=== PATIENT | male | born 1960 | race Caucasian/White ===

== ENCOUNTER 2020-03-22 05:48 | Day surgery (SDC) | payer MEDICAID ==
[~2020-03-22] VITALS: Ht 172.7 cm; Wt 62.7 kg
[~2020-03-22 05:48] MED LIST: ALBU8HFA IH; AMLO-257 PO; ASPI-1111 PO; ASPI-728 PO; ATOR20TA86 PO; ATOR40TA28 PO; CILO100T PO; CLOP75TA14 PO; ISOS30TA6 PO; LISI-662 PO; NITR0.4T52 SL; PANT-31 PO; PROP10TA73 PO; SODIUM CHLORIDE 0.9% 1,000 ML ONE
[2020-03-22] MEDS ORDERED: SODIUM CHLORIDE 0.9% 1,000 ML IV ONE ×2 (06:00→07:30)
[2020-03-22] MEDS ORDERED: SODIUM POLYSTYRENE SULFONATE 15 GM/60 ML SUSPENSION BOTTLE PO ONE (07:30)
[2020-03-22] MEDS ORDERED: FUROSEMIDE 20 MG/2 ML VIAL IVP ONE (07:30)
[2020-03-22] MEDS ORDERED: FUROSEMIDE 40 MG/4 ML VIAL ONE (07:37)
[2020-03-22] MEDS ORDERED: DiphenhydrAMINE HCL 50 MG CAPSULE PO ONE (09:45)
[2020-03-22] MEDS ORDERED: DIAZEPAM 10 MG TABLET PO ONE (09:45)
[2020-03-22 12:00] LABS: CALCIUM, TOTAL 8.8 mg/dL (8.8-10.5); CREATININE 1.58 mg/dL (0.60-1.30)
[2020-03-22] MEDS ORDERED: ACETYLCYSTEINE 20% 200 MG/ML 4 ML ORAL SOLUTION PO ONE (12:00)
[2020-03-22] MEDS ORDERED: LIDOCAINE/PF 1% 30 ML VIAL ONE (12:30)
[2020-03-22] MEDS ORDERED: HEPARIN SODIUM,PORCINE 1,000 UNITS/ML 10 ML VIAL ONE (12:30)
[2020-03-22] MEDS ORDERED: HEPARIN SODIUM 1000 UNITS/NS 1,000 ML ONE (12:31)
[2020-03-22] MEDS ORDERED: IODIXANOL 320 MG/ML 150 ML VIAL ONE (12:33)
[2020-03-22] MEDS ORDERED: HEPARIN SODIUM 2,000 UNITS in HEPARIN SODIUM 1000 UNITS/NS 1,000 ML IARTER ONE ×2 (12:53→14:59)
[2020-03-22] MEDS ORDERED: IOHEXOL 300 MG/ML 150 ML VIAL ICOR ONE (13:00)
[2020-03-22] MEDS ORDERED: LIDOCAINE 1% 30 ML/SOD BICARB 8.4% 4 ML SQ ONE (13:00)
[2020-03-22] MEDS ORDERED: FentaNYL CITRATE-PF 100 MCG/2 ML VIAL ONE (13:27)
[2020-03-22] MEDS ORDERED: MIDAZOLAM HCL 2 MG/2 ML VIAL ONE ×2 (13:27→14:29)
[2020-03-22] MEDS ORDERED: FentaNYL CITRATE-PF 100 MCG/2 ML VIAL IVP ONE ×3 (13:45→15:30)
[2020-03-22] MEDS ORDERED: MIDAZOLAM HCL 2 MG/2 ML VIAL IVP ONE ×3 (13:45→15:30)
[2020-03-22] MEDS ORDERED: VERAPAMIL HCL 2.5 MG/ML 2 ML VIAL ONE (13:46)
[2020-03-22] MEDS ORDERED: HEPARIN SODIUM 1000 UNITS/NS 1,000 ML IARTER ONE (14:59)
[2020-03-22] MEDS ORDERED: NITROGLYCERIN/D5W 50 MG/250 ML IV BOTTLE IARTER ONE (15:00)
[2020-03-22] MEDS ORDERED: VERAPAMIL HCL 2.5 MG/ML 2 ML VIAL ICOR ONE (15:00)
[2020-03-22] MEDS ORDERED: HEPARIN SODIUM,PORCINE 1,000 UNITS/ML 10 ML VIAL IVP ONE (15:00)
[2020-03-22] MEDS ORDERED: HYDROCODONE/ACETAMINOPHEN 5-325 MG TABLET PO PRN (15:30)
[2020-03-22] MEDS ORDERED: SODIUM CHLORIDE 0.9% 500 ML IV ONE (15:30)
[2020-03-22 15:33] VITALS: BP 116/74
== END 2020-03-22 18:30 | disposition home or self-care (01) ==
LOC: CATHLAB 05:48
PROVIDERS: ATTEND Internal Medicine Cardiovascular Disease
DX: I70.213 Atherosclerosis of native arteries of extremities with intermittent claudication, bilateral legs (principal); I25.10 Atherosclerotic heart disease of native coronary artery without angina pectoris; E78.5 Hyperlipidemia, unspecified; K70.30 Alcoholic cirrhosis of liver without ascites; F17.210 Nicotine dependence, cigarettes, uncomplicated; E78.2 Mixed hyperlipidemia; Z72.89 Other problems related to lifestyle; I65.23 Occlusion and stenosis of bilateral carotid arteries; J44.9 Chronic obstructive pulmonary disease, unspecified; Z79.899 Other long term (current) drug therapy; Z79.82 Long term (current) use of aspirin
CPT/HCPCS: 36415; 37224; 75630; 75716; 76000; 76937; 80048; 93005; 99152; 99153; C1725; C1769 ×2; C1887; J1644 ×2; J1940; J2250; J3010; J3490 ×2; J7030; Q9967; 36200; 75962